=== PATIENT | male | born 1965 | race Caucasian/White ===

== ENCOUNTER 2019-06-16 18:03 | Inpatient (IN) ==
[2019-06-16 18:37] LABS: Basophils % 0.2 %
[2019-06-16 18:39] LABS: Hematocrit 42.2 % (37.5-50.1); Hemoglobin 15.5 g/dL (12.9-16.9); INR 1.4; Immature Granulocytes % 1.1 % (0-4); Immature Platelets 6.2 % (1.1-6.1); Lymphocytes % 8.1 %; Mean Corpuscular HGB Conc 36.7 g/dL (31.6-35.5); Mean Corpuscular Hemoglobin 36.6 pg (28.0-33.3); Mean Corpuscular Volume 99.5 fL (83.0-100.0); Mean Platelet Volume 11.1 fL (9.4-12.4); Monocytes % 7.8 %; Neutrophils # 10.5 K/mcL (1.6-8.9); Nucleated Red Blood Cells 0.3 /100 WBC (0); Red Blood Count 4.24 M/mcL (4.19-5.50); Red Cell Distribution Width 17.5 % (11.5-14.5); Segmented Neutrophils % 82.8 %; White Blood Count 12.7 K/mcL (4.3-11.1)
[2019-06-16 18:41] LABS: Activated Partial Thrombo Time 33.6 Seconds (26.0-36.0)
[2019-06-16 19:02] LABS: Platelet Count 76 K/mcL (140-400)
[2019-06-16] MEDS ORDERED: 0.9 % Sodium Chloride 500 ML IVC ONE (19:04)
[2019-06-16 19:07] LABS: Alanine Aminotransferase 121 Units/L (7-52); Albumin 3.1 g/dL (3.5-5.7); Albumin/Globulin Ratio 1.1 (1.1-2.2); Alkaline Phosphatase 545 Units/L (34-104); Aspartate Amino Transferase 330 Units/L (13-39); BUN/Creatinine Ratio 13 (6-26); Bilirubin,Direct 7.5 mg/dL (0.0-0.2); Bilirubin,Indirect 5.9 mg/dL (0.0-1.0); Bilirubin,Total 13.4 mg/dL (0.3-1.0); Blood Urea Nitrogen 10 mg/dL (6-20); Calcium 8.4 mg/dL (8.6-10.3); Carbon Dioxide 23 mEq/L (23-29); Chloride 87 mEq/L (98-107); Globulin 2.8 g/dL (2.4-3.5); Glucose 89 mg/dL (70-105); Osmolality,Calculated 265 (280-300); Potassium 3.5 mEq/L (3.5-5.1); Sodium 128 mEq/L (136-145); Total Protein 5.9 g/dL (6.4-8.9); Troponin I 0.04 ng/mL (< 0.04); eGFR For African Americans > 60 (> 60); eGFR For Non-African Americans > 60 (> 60)
[2019-06-16] MEDS ORDERED: Piperacillin/Tazobactam 3.375 GM in 0.9 % Sodium Chloride Mini Bag 100 ML IVPB ONE (19:53)
[2019-06-16] MEDS ORDERED: Aspirin 325 MG TABLET PO ONE (19:57)
[2019-06-16] MEDS ORDERED: Isovue-370 500 ML BOTTLE IVP ONE (20:24)
[2019-06-16] MEDS ORDERED: Naloxone 0.4 MG/ML INJ IVP PRN (20:33)
[2019-06-16] MEDS ORDERED: Nicotine 2 MG GUM BC PRN (20:33)
[2019-06-16] MEDS ORDERED: Albuterol 2.5 MG/3 ML NEBULIZER IH PRN (20:33)
[2019-06-16 20:34] LABS: Acetaminophen < 10 mcg/mL (10-20)
[2019-06-16] MEDS: Ipratropium/Albuterol Neb 3 ML IH SCH ×2 (22:38→22:50)
[2019-06-16] MEDS ORDERED: Gadolinium Contrast Agent (WT Based) IV PRN (23:18)
[2019-06-16] MEDS: Nicotine 14 MG PATCH.TD24 TD SCH (23:59)
[2019-06-17 01:34] LABS: VBG HCO3 23 mEq/L (21-27); VBG PCO2 33 mmHg (41-51); VBG PH 7.46 pH Units (7.32-7.42); VBG PO2 74 mmHg (25-50)
[2019-06-17 03:47] LABS: Basophils % 0.2 %; Immature Granulocytes % 0.7 % (0-4); Mean Corpuscular Volume 99.1 fL (83.0-100.0)
[2019-06-17 03:49] LABS: Hematocrit 43.7 % (37.5-50.1); Hemoglobin 15.8 g/dL (12.9-16.9); Immature Platelets 6.3 % (1.1-6.1); Lymphocytes # 1.1 K/mcL (0.6-4.6); Lymphocytes % 9.3 %; Mean Corpuscular HGB Conc 36.2 g/dL (31.6-35.5); Mean Corpuscular Hemoglobin 35.8 pg (28.0-33.3); Mean Platelet Volume 11.8 fL (9.4-12.4); Monocytes # 0.9 K/mcL (0.0-1.3); Monocytes % 7.8 %; Neutrophils # 9.5 K/mcL (1.6-8.9); Nucleated Red Blood Cells 0.4 /100 WBC (0); Red Blood Count 4.41 M/mcL (4.19-5.50); Red Cell Distribution Width 17.3 % (11.5-14.5); White Blood Count 11.6 K/mcL (4.3-11.1)
[2019-06-17 03:59] LABS: Platelet Count 56 K/mcL (140-400)
[2019-06-17 04:10] LABS: Alanine Aminotransferase 118 Units/L (7-52); Albumin 3.1 g/dL (3.5-5.7); Albumin/Globulin Ratio 1.1 (1.1-2.2); Alkaline Phosphatase 517 Units/L (34-104); Aspartate Amino Transferase 315 Units/L (13-39); BUN/Creatinine Ratio 11 (6-26); Bilirubin,Total 13.5 mg/dL (0.3-1.0); Blood Urea Nitrogen 9 mg/dL (6-20); Calcium 8.4 mg/dL (8.6-10.3); Carbon Dioxide 22 mEq/L (23-29); Chloride 89 mEq/L (98-107); Globulin 2.8 g/dL (2.4-3.5); Glucose 69 mg/dL (70-105); Magnesium 1.4 mg/dL (1.6-2.6); Osmolality,Calculated 263 (280-300); Potassium 3.5 mEq/L (3.5-5.1); Sodium 128 mEq/L (136-145); Total Protein 5.9 g/dL (6.4-8.9); eGFR For African Americans > 60 (> 60); eGFR For Non-African Americans > 60 (> 60)
[2019-06-17] MEDS: Ipratropium/Albuterol Neb 3 ML IH SCH ×4 (04:31→22:06)
[2019-06-17 04:42] LABS: INR 1.5; Prothrombin Time 17.6 Seconds (9.4-12.1)
[2019-06-17] MEDS: Piperacillin/Tazobactam 3.375 GM in 0.9 % Sodium Chloride Mini Bag 100 ML IVPB SCH ×3 (08:31→23:45)
[2019-06-17] MEDS: Nicotine 14 MG PATCH.TD24 TD SCH (08:32)
[2019-06-17] MEDS ORDERED: Nicotine 14 MG PATCH.TD24 TD SCH (09:00)
[2019-06-17] MEDS ORDERED: *HR* LORazepam 2 MG/ML VIAL IVP PRN ×3 (09:15)
[2019-06-17] MEDS: Morphine Sulfate 2 MG/ML SYRINGE IVP PRN ×2 (17:11→23:45)
[2019-06-17] MEDS: methylPREDNISolone 125 MG/2 ML VIAL IVP SCH (17:37)
[2019-06-18] MEDS: Ipratropium/Albuterol Neb 3 ML IH SCH ×2 (03:43→11:34)
[2019-06-18 05:35] LABS: Basophils % 0.1 %; Hematocrit 34.4 % (37.5-50.1)
[2019-06-18 05:37] LABS: Immature Granulocytes % 0.7 % (0-4); Immature Platelets 7.8 % (1.1-6.1); Lymphocytes # 0.7 K/mcL (0.6-4.6); Mean Corpuscular HGB Conc 34.9 g/dL (31.6-35.5); Mean Corpuscular Hemoglobin 35.9 pg (28.0-33.3); Mean Platelet Volume 11.2 fL (9.4-12.4); Monocytes # 0.3 K/mcL (0.0-1.3); Monocytes % 3.7 %; Neutrophils # 7.5 K/mcL (1.6-8.9); Nucleated Red Blood Cells 0.4 /100 WBC (0); Red Blood Count 3.34 M/mcL (4.19-5.50); Red Cell Distribution Width 17.2 % (11.5-14.5); Segmented Neutrophils % 87.5 %; White Blood Count 8.6 K/mcL (4.3-11.1)
[2019-06-18 05:42] LABS: Alanine Aminotransferase 95 Units/L (7-52); Albumin 2.6 g/dL (3.5-5.7); Albumin/Globulin Ratio 1.1 (1.1-2.2); Alkaline Phosphatase 336 Units/L (34-104); Aspartate Amino Transferase 217 Units/L (13-39); BUN/Creatinine Ratio 17 (6-26); Bilirubin,Direct 7.5 mg/dL (0.0-0.2); Bilirubin,Indirect 5.7 mg/dL (0.0-1.0); Bilirubin,Total 13.2 mg/dL (0.3-1.0); Blood Urea Nitrogen 14 mg/dL (6-20); Carbon Dioxide 27 mEq/L (23-29); Chloride 88 mEq/L (98-107); Globulin 2.3 g/dL (2.4-3.5); Glucose 127 mg/dL (70-105); Osmolality,Calculated 270 (280-300); Platelet Count 44 K/mcL (140-400); Potassium 3.4 mEq/L (3.5-5.1); Sodium 129 mEq/L (136-145); Total Protein 4.9 g/dL (6.4-8.9); eGFR For African Americans > 60 (> 60); eGFR For Non-African Americans > 60 (> 60)
[2019-06-18] MEDS: Nicotine 14 MG PATCH.TD24 TD SCH (07:58)
[2019-06-18] MEDS: methylPREDNISolone 125 MG/2 ML VIAL IVP SCH (07:58)
[2019-06-18] MEDS: Piperacillin/Tazobactam 3.375 GM in 0.9 % Sodium Chloride Mini Bag 100 ML IVPB SCH ×3 (07:59→23:52)
[2019-06-18] MEDS: Ondansetron 4 MG/2 ML VIAL IVP PRN ×2 (09:46→17:03)
[2019-06-18] MEDS ORDERED: Furosemide 20 MG TABLET PO PRN (11:35)
[2019-06-18 13:33] LABS: Hematocrit 35.6 % (37.5-50.1); Hemoglobin 12.3 g/dL (12.9-16.9)
[2019-06-18] MEDS: Folic Acid 1 MG TABLET PO SCH (13:55)
[2019-06-18] MEDS: Multivit/Ca/Min/Fe/FA 1 TAB TABLET PO SCH (13:55)
[2019-06-18] MEDS: Thiamine (B-1) 100 MG TABLET PO SCH (13:55)
[2019-06-18 13:58] LABS: Phosphorous 1.3 mg/dL (2.7-4.5)
[2019-06-18] MEDS ORDERED: Albumin 25% 25gram/100mL 25 GM/100 ML IV.SOLN IVPB SCH (18:15)
[2019-06-18] MEDS: Pyridoxine (B-6) 50 MG TABLET PO SCH (21:14)
[2019-06-18] MEDS ORDERED: *HR* LORazepam 2 MG/ML VIAL IVP ONE (23:42)
[2019-06-19] MEDS ORDERED: Lactulose Oral Soln 20 GM/30 ML UDC PO ONE (01:24)
[2019-06-19] MEDS ORDERED: Lactulose 200 GM, Sodium Chloride IRRigation 700 ML RC ONE (02:25)
[2019-06-19 04:08] LABS: ABG Base Excess 0 mEq/L (-2 to 3); ABG HCO3 22 mEq/L (21-27); ABG Oxygen Saturation 98 % (95-98); ABG PCO2 24 mmHg (35-45); ABG PH 7.56 pH Units (7.32-7.45); ABG PO2 82 mmHg (85-104); ABG TCO2 23 mEq/L (20-26)
[2019-06-19] MEDS ORDERED: 0.9 % Sodium Chloride 1,000 ML IVC ONE (04:59)
[2019-06-19] MEDS ORDERED: Octreotide 400 MCG in 0.9 % Sodium Chloride 100 ML IVC SCH (05:00)
[2019-06-19] MEDS ORDERED: Pantoprazole 40 MG in 0.9 % Sodium Chloride Mini Bag 100 ML IVC SCH ×2 (05:00→05:15)
[2019-06-19] MEDS ORDERED: MetroNIDAZOLE 250 MG/50 ML 250 MG/50 ML BAG IVPB SCH (05:00)
[2019-06-19] MEDS ORDERED: Octreotide 50 MCG/ML INJ IVP ONE ×2 (05:01→06:45)
[2019-06-19] MEDS ORDERED: Artificial Tears SOLN 15 ML BOTTLE BOTH EYES PRN (05:40)
[2019-06-19] MEDS ORDERED: FentaNYL (PF) 1,000 MCG in 0.9 % Sodium Chloride 80 ML IVC SCH (05:45)
[2019-06-19] MEDS ORDERED: 0.9 % Sodium Chloride 1,000 ML ONE ×3 (05:45→07:45)
[2019-06-19] MEDS ORDERED: *HR* Norepinephrine 4 MG/4 ML VIAL IVC ONE ×2 (05:46→11:17)
[2019-06-19] MEDS ORDERED: 0.9 % Sodium Chloride 250 ML ONE ×2 (05:46→07:01)
[2019-06-19] MEDS ORDERED: 0.9 % Sodium Chloride 250 ML IVC SCH ×2 (06:15→06:30)
[2019-06-19] MEDS: Norepinephrine 4 MG in 0.9 % Sodium Chloride 250 ML IVC SCH ×2 (06:18→08:58)
[2019-06-19] MEDS ORDERED: *HR* Dextrose 50 % in Water (Syg) 50 ML SYRINGE IVP ONE (06:26)
[2019-06-19 06:28] LABS: Hemoglobin 5.7 g/dL (12.9-16.9)
[2019-06-19 06:32] LABS: Alanine Aminotransferase 91 Units/L (7-52); Albumin 2.1 g/dL (3.5-5.7); Albumin/Globulin Ratio 1.4 (1.1-2.2); Alkaline Phosphatase 182 Units/L (34-104); Aspartate Amino Transferase 242 Units/L (13-39); BUN/Creatinine Ratio 23 (6-26); Bilirubin,Direct 7.5 mg/dL (0.0-0.2); Bilirubin,Indirect 6.1 mg/dL (0.0-1.0); Bilirubin,Total 13.6 mg/dL (0.3-1.0); Blood Urea Nitrogen 30 mg/dL (6-20); Calcium 8.1 mg/dL (8.6-10.3); Carbon Dioxide 17 mEq/L (23-29); Chloride 92 mEq/L (98-107); Globulin 1.5 g/dL (2.4-3.5); Glucose 68 mg/dL (70-105); Magnesium 2.3 mg/dL (1.6-2.6); Osmolality,Calculated 280 (280-300); Phosphorous 3.3 mg/dL (2.7-4.5); Potassium 5.1 mEq/L (3.5-5.1); Sodium 133 mEq/L (136-145); Total Protein 3.6 g/dL (6.4-8.9); eGFR For African Americans > 60 (> 60); eGFR For Non-African Americans 56 (> 60)
[2019-06-19 06:32] LABS: INR 4.1
[2019-06-19 06:33] LABS: Prothrombin Time 47.1 Seconds (9.4-12.1)
[2019-06-19 06:34] LABS: VBG Ionized Calcium 0.91 mmol/L (1.15-1.35)
[2019-06-19] MEDS ORDERED: 0.9 % Sodium Chloride 500 ML ONE ×2 (06:51→07:56)
[2019-06-19] MEDS ORDERED: Vasopressin 40 UNIT in D5% in Water 100 ML IVC SCH (07:00)
[2019-06-19] MEDS ORDERED: cefTRIAXone 2,000 MG in Water for inj. (sterile) 20 ML IVP SCH (07:00)
[2019-06-19] MEDS ORDERED: EPINEPHrine 1 MG/ML VIAL ONE (07:01)
[2019-06-19] MEDS ORDERED: EPINEPHrine 5 MG in D5% in Water 250 ML IVC SCH (07:30)
[2019-06-19] MEDS ORDERED: 0.9 % Sodium Chloride 2,000 ML ONE (07:37)
[2019-06-19] MEDS ORDERED: WATER FOR INJ IVPB ONE (07:45)
[2019-06-19] MEDS ORDERED: HUM PROTHROMBIN CPLX IVPB ONE (07:45)
[2019-06-19] MEDS ORDERED: [UNRECOGNIZED DRUG - OTHER] IVPB ONE (07:45)
[2019-06-19] MEDS ORDERED: Artificial Tears SOLN 15 ML BOTTLE BOTH EYES SCH (08:00)
[2019-06-19] MEDS ORDERED: cefTRIAXone 2,000 MG in Water for inj. (sterile) 20 ML IVP ONE (08:20)
[2019-06-19] MEDS: Multivit/Ca/Min/Fe/FA 1 TAB TABLET PO SCH (08:37)
[2019-06-19] MEDS: Pyridoxine (B-6) 50 MG TABLET PO SCH (08:37)
[2019-06-19] MEDS: Folic Acid 1 MG TABLET PO SCH (08:37)
[2019-06-19] MEDS: Thiamine (B-1) 100 MG TABLET PO SCH (08:37)
[2019-06-19] MEDS ORDERED: Chlorhexidine Rinse 15 ML MOUTHWASH MM SCH (09:00)
[2019-06-19] MEDS ORDERED: 0.9 % Sodium Chloride 3,000 ML ONE (09:11)
[2019-06-19 09:12] LABS: Red Cell Distribution Width 17.1 % (11.5-14.5)
[2019-06-19] MEDS ORDERED: Calcium Gluconate 1,000 MG/10 ML VIAL ONE (09:13)
[2019-06-19 09:14] LABS: Hematocrit 26.8 % (37.5-50.1); Hemoglobin 8.3 g/dL (12.9-16.9); Immature Platelets 3.5 % (1.1-6.1); Mean Corpuscular Hemoglobin 31.8 pg (28.0-33.3); Mean Corpuscular Volume 102.7 fL (83.0-100.0); Mean Platelet Volume 9.7 fL (9.4-12.4); Nucleated Red Blood Cells 11.6 /100 WBC (0); Platelet Count 108 K/mcL (140-400); Red Blood Count 2.61 M/mcL (4.19-5.50); White Blood Count 13.8 K/mcL (4.3-11.1)
[2019-06-19 09:19] LABS: Activated Partial Thrombo Time 66.6 Seconds (26.0-36.0); INR 1.3; Prothrombin Time 15.1 Seconds (9.4-12.1)
[2019-06-19 09:19] LABS: VBG Ionized Calcium 0.82 mmol/L (1.15-1.35)
[2019-06-19] MEDS ORDERED: Calcium Gluconate 1,000 MG/10 ML VIAL IVP ONE ×2 (09:20→10:00)
[2019-06-19] MEDS: Phenylephrine 50 MG in 0.9 % Sodium Chloride 250 ML IVC SCH ×2 (09:21→11:59)
[2019-06-19 09:30] LABS: Alanine Aminotransferase 114 Units/L (7-52); Albumin/Globulin Ratio 1.5 (1.1-2.2); Alkaline Phosphatase 118 Units/L (34-104); Aspartate Amino Transferase 398 Units/L (13-39); BUN/Creatinine Ratio 20 (6-26); Bilirubin,Direct 4.7 mg/dL (0.0-0.2); Bilirubin,Indirect 3.1 mg/dL (0.0-1.0); Bilirubin,Total 7.8 mg/dL (0.3-1.0); Blood Urea Nitrogen 28 mg/dL (6-20); Carbon Dioxide 11 mEq/L (23-29); Chloride 97 mEq/L (98-107); Globulin 1.3 g/dL (2.4-3.5); Glucose 94 mg/dL (70-105); Magnesium 2.4 mg/dL (1.6-2.6); Osmolality,Calculated 289 (280-300); Phosphorous 11.4 mg/dL (2.7-4.5); Potassium 5.4 mEq/L (3.5-5.1); Sodium 137 mEq/L (136-145); Total Protein 3.3 g/dL (6.4-8.9); eGFR For African Americans > 60 (> 60); eGFR For Non-African Americans 53 (> 60)
[2019-06-19] MEDS ORDERED: Calcium Gluconate 1gm/50mL 2 GM/100 ML BAG IVPB ONE (09:31)
[2019-06-19] MEDS: Calcium Gluconate 1gm/50mL BAG IVPB SCH ×2 (09:40→09:55)
[2019-06-19 09:41] LABS: Lymphocytes # 2.8 K/mcL (0.6-4.6); Monocytes # 1.1 K/mcL (0.0-1.3); Neutrophils # 9.9 K/mcL (1.6-8.9); Platelet Estimate Slight Decrease (Normal)
[2019-06-19 09:49] LABS: ABG Base Excess -15 mEq/L (-2 to 3); ABG HCO3 13 mEq/L (21-27); ABG Oxygen Saturation 100 % (95-98); ABG PCO2 37 mmHg (35-45); ABG PH 7.14 pH Units (7.32-7.45); ABG PO2 591 mmHg (85-104); ABG TCO2 14 mEq/L (20-26); Blood Gas Modality AF; Blood Gas VT 500 cc
[2019-06-19] MEDS ORDERED: *HR* Vecuronium 10 MG VIAL ONE (09:50)
[2019-06-19] MEDS ORDERED: *HR* Midazolam HCl 5 MG/5 ML VIAL IVP ONE ×3 (09:51→11:17)
[2019-06-19 09:55] LABS: Hepatitis B Surface Antigen Nonreactive (Nonreactive)
[2019-06-19] MEDS ORDERED: *HR* Vecuronium 10 MG VIAL IVP ONE (10:00)
[2019-06-19] MEDS ORDERED: Sodium Bicarbonate 50 MEQ/50 ML VIAL IVP ONE (10:00)
[2019-06-19] MEDS ORDERED: Sodium Bicarbonate 50 MEQ/50 ML VIAL ONE (10:01)
[2019-06-19 10:10] VITALS: BP 109/81
[2019-06-19 10:24] LABS: ABG Base Excess -6 mEq/L (-2 to 3); ABG HCO3 20 mEq/L (21-27); ABG Oxygen Saturation 100 % (95-98); ABG PCO2 38 mmHg (35-45); ABG PH 7.32 pH Units (7.32-7.45); ABG PO2 280 mmHg (85-104); ABG TCO2 21 mEq/L (20-26); Blood Gas Modality AF; Blood Gas VT 500 cc
[2019-06-19 10:24] LABS: Hepatitis B Core IgM Nonreactive (Nonreactive); Hepatitis C Virus Antibody Nonreactive (Nonreactive)
[2019-06-19 10:25] LABS: Hepatitis A Antibody IgM Nonreactive (Nonreactive)
[2019-06-19] MEDS ORDERED: Sodium Bicarbonate 150 MEQ in D5% in Water 1,000 ML IVC SCH (10:30)
[2019-06-19] MEDS ORDERED: D5% in Water 250 ML IV BAG IV ONE (11:17)
[2019-06-19] MEDS ORDERED: *HR* Atropine Sulfate 1 MG/10 ML SYRINGE IV ONE (11:17)
[2019-06-19] MEDS ORDERED: EPINEPHrine 1 MG/ML VIAL IV ONE (11:17)
[2019-06-19] MEDS ORDERED: *HR* Etomidate 20 MG/10 ML AMPUL IVP ONE (11:17)
[2019-06-19] MEDS ORDERED: *HR* EPINEPHrine 1 MG/10 ML SYRINGE ONE (11:50)
[2019-06-21 06:56] LABS: ANA IgG by ELISA NONE DETECTED (None Detected)
== END 2019-06-19 11:18 | disposition short-term general hospital (02) | DRG 432 ==
LOC: EMEROOARM 18:03 → 3ANU 18:03 → SUATTDRO 21:34 → 3ANU 22:31 → 2NNU 06-19 04:51 → ICNU 06-19 05:25
PROVIDERS: ADMIT Internal Medicine; ATTEND Family Medicine